=== PATIENT | female | born 1950 | race Hispanic/Latino ===

== ENCOUNTER 2017-02-05 09:43 | Emergency (ER) | payer MEDICARE, MEDICAID ==
[~2017-02-05] VITALS: Ht 149.9 cm; Wt 70.0 kg
[~2017-02-05 09:43] MED LIST: AMARYL4 MG OR; AMARYL4 MG PO; AMITRIPTYLIN100 MG PO; AMITRIPTYLIN25 MG PO; AMLODIPINE5 MG PO; ATARAX; ATIVAN1 MG OR; BUMEX OR; CALCIUM500 MG/D OR; CLARITIN10 MG OR; CLONIDINE0.1 MG PO; COLACE100 MG OR; CYCLOBENZAPR10 MG OR; CYCLOBENZAPR10 MG PO; DETROL LA4 MG OR; DIOVAN80 MG PO; DOXYCYCL HYC100 M3 PO; DOXYCYCL HYC100 MG OR; DURAGESIC50 MCG/HR TD; DURAGESIC75 MCG/HR TD; FLEXERIL OR; FLUOXETINE20 MG OR; GABAPENTIN300 MG OR; HYDRALAZINE10 MG PO; HYDROCHLOROT12.5 MG PO; HYDROMORPHON8 MG OR; INSULIN SY0.5 MG/32 SC; KLOR-CON M2020 MEQ OR; KLOR-CON20 MEQ OR; LABETALOL100 MG PO; LABETALOL200 MG PO; LANTUS100 MG/ML SC; LASIX 80 MG TAB80 MG OR; LASIX20 MG OR; LISINOPRIL20 MG PO; LORTAB 10 PO; LORTAB 10-325 M1 TAB PO; LOSARTAN POTASS50 MG PO; MEDDOSEPAK PO; METFORMIN500 M1 OR; METFORMIN500 MG PO; METHOCARBAM750 MG OR; METOLAZONE2.5 MG OR; METOPROLOL25 M1 OR; MIRTAZAPINE OR; MIRTAZAPINE15 MG PO; Metformin OR; NAPROSYN500 MG OR; NAPROSYN500 MG PO; NEURONTIN300 MG PO; NEURONTIN600 MG OR; NEXIUM40 M1 OR; NITROGLYCER0.4 MG SL; NORCO1 TA1 PO; NORCO1 TA2 OR; NORVASC2.5 MG PO; OSCAL 500/1 TAB OR; OXYCO/APAP1 TA1 OR; OXYCODO-APAP1 TA2 PO; PLAVIX75 MG OR; POOR HISTORIAN; PRAVASTATIN20 MG PO; PREVACID30 M1 OR; PREVACID30 M1 PO; PRILOSEC40 MG PO; PRINIVIL20 MG OR; PRINIVIL5 MG OR; PROTONIX40 MG OR; PROZAC20 MG OR; REGLAN10 MG OR; REMERON15 MG OR; ROBAXIN-750750 MG OR; SOMA350 MG OR; TRAMADOL HCL50 MG OR; ZESTRIL40 MG OR
[2017-02-05] MEDS ORDERED: NORVASC5 M1 PO (10:08)
[2017-02-05] MEDS ORDERED: TRAMADOL HCL50 MG PO (10:09)
[2017-02-05] MEDS ORDERED: CATAPRES0.1 MG PO (10:10)
[2017-02-05] MEDS ORDERED: FLEXERIL5 M1 PO (10:11)
[2017-02-05] MEDS ORDERED: PENICILLN VK500 MG PO ×2 (10:12→11:34)
[2017-02-05 10:20] LABS: HEMATOCRIT 39.6 % (37.0-47.0); IMMATURE GRANULOCYTES 0.5 % (0.0-1.0); MEAN CELL VOLUME 88.6 fL CALC (80.0-100.0); MEAN CORPUSCULAR HGB 31.3 pG CALC (26.0-32.0); MEAN CORPUSCULAR HGB CONC 35.4 g/L CALC (32.0-36.0); NEUT# 5.37 thou/uL (2.00-7.15); RED BLOOD COUNT 4.47 mill/uL (4.20-5.60); RED CELL DISTRI WIDTH 11.9 % (11.5-15.5)
[2017-02-05 11:06] LABS: ALBUMIN 3.9 g/dL (3.2-5.0); ALKALINE PHOSPHATASE 173 u/l (38-126); ANION GAP 13 (6-22 (CALC)); BILIRUBIN, TOTAL 0.4 mg/dL (0.0-1.4); BUN 12 mg/dL (8-23); BUN/CREATININE RATIO 20 (12-20 (CALC)); CARBON DIOXIDE 25 mmol/l (22-30); CHLORIDE 101 mmol/l (95-108); CREATININE 0.6 mg/dL (0.5-1.0); GFR > 60 ML/MIN (>=60 (CALC)); GFR FOR AFR.AMER. > 60 ML/MIN (>=60 (CALC)); GLUCOSE 373 mg/dL (82-115); SGOT/AST 18 u/l (9-36); SGPT/ALT 30 u/l (11-66); SODIUM 134 mmol/l (137-146); TOTAL PROTEIN 7.2 g/dL (6.3-8.2)
[2017-02-05 11:17] LABS: MYOGLOBIN 16 ng/mL (0 - 62)
[2017-02-05] MEDS ORDERED: LORTAB 5-325 MG1 TAB PO (11:34)
[2017-02-05 12:16] VITALS: BP 189/96
== END 2017-02-05 12:18 | disposition home or self-care (01) ==
LOC: ED 09:43
PROVIDERS: Emergency Medicine
DX: K08.89 Other specified disorders of teeth and supporting structures (principal); I16.0 Hypertensive urgency; Z91.14 Patient's other noncompliance with medication regimen; R94.31 Abnormal electrocardiogram [ECG] [EKG]

== ENCOUNTER 2017-05-19 11:13 | Emergency (ER) | payer MEDICARE ==
[~2017-05-19] VITALS: Ht 149.9 cm; Wt 63.0 kg
[~2017-05-19 11:13] MED LIST changes: +CATAPRES0.1 MG PO; +FLEXERIL5 M1 PO; +LORTAB 5-325 MG1 TAB PO; +NORVASC5 M1 PO; +PENICILLN VK500 MG PO; +TRAMADOL HCL50 MG PO
[2017-05-19] MEDS ORDERED: NAPROSYN500 MG PO (12:31)
[2017-05-19 12:43] VITALS: BP 164/91
== END 2017-05-19 12:48 | disposition home or self-care (01) ==
LOC: ED 11:13
DX: S60.222A Contusion of left hand, initial encounter (principal); I10 Essential (primary) hypertension; E11.9 Type 2 diabetes mellitus without complications; F41.9 Anxiety disorder, unspecified; Z86.73 Personal history of transient ischemic attack (TIA), and cerebral infarction without residual deficits; G89.29 Other chronic pain; M54.9 Dorsalgia, unspecified; W23.1XXA Caught, crushed, jammed, or pinched between stationary objects, initial encounter

== ENCOUNTER 2017-09-18 16:22 | Emergency (ER) | payer MEDICARE, MEDICAID ==
[~2017-09-18] VITALS: Ht 149.9 cm; Wt 66.0 kg
[2017-09-18 19:48] LABS: HEMATOCRIT 41.1 % (37.0-47.0); HEMOGLOBIN 14.3 g/dl (12.0-16.0); IMMATURE GRANULOCYTES 0.4 % (0.0-1.0); MEAN CELL VOLUME 88.6 fL CALC (80.0-100.0); MEAN CORPUSCULAR HGB 30.8 pG CALC (26.0-32.0); MEAN CORPUSCULAR HGB CONC 34.8 g/L CALC (32.0-36.0); NEUT# 6.44 thou/uL (2.00-7.15); RED BLOOD COUNT 4.64 mill/uL (4.20-5.60); RED CELL DISTRI WIDTH 11.9 % (11.5-15.5)
[2017-09-18 19:55] LABS: INFLUENZA A NONE DETECTED (NONE DETECT); INFLUENZA B NONE DETECTED (NONE DETECT)
[2017-09-18 20:05] LABS: ANION GAP 18 (6-22 (CALC)); BUN 20 mg/dL (8-23); BUN/CREATININE RATIO 28 (12-20 (CALC)); CALCIUM 9.8 mg/dL (8.4-10.2); CARBON DIOXIDE 22 mmol/l (22-30); CHLORIDE 101 mmol/l (95-108); CREATININE 0.7 mg/dL (0.5-1.0); GFR > 60 ML/MIN (>=60 (CALC)); GFR FOR AFR.AMER. > 60 ML/MIN (>=60 (CALC)); SODIUM 136 mmol/l (137-146)
[2017-09-18 20:12] LABS: GLUCOSE 452 mg/dL (82-115)
[2017-09-18] MEDS ORDERED: ZPAK PO (21:53)
[2017-09-18 22:18] VITALS: BP 142/67
== END 2017-09-18 22:22 | disposition home or self-care (01) ==
LOC: ED 16:22
PROVIDERS: Family Medicine
DX: J06.9 Acute upper respiratory infection, unspecified (principal); I16.0 Hypertensive urgency; R06.02 Shortness of breath; E11.9 Type 2 diabetes mellitus without complications; Z79.4 Long term (current) use of insulin

== ENCOUNTER 2017-09-29 13:36 | Emergency (ER) | payer MEDICARE, MEDICAID ==
[~2017-09-29] VITALS: Ht 149.9 cm; Wt 63.0 kg
[~2017-09-29 13:36] MED LIST changes: +ZPAK PO
[2017-09-29 14:28] LABS: HEMATOCRIT 41.6 % (37.0-47.0); HEMOGLOBIN 15.1 g/dl (12.0-16.0); IMMATURE GRANULOCYTES 0.5 % (0.0-1.0); MEAN CELL VOLUME 86.1 fL CALC (80.0-100.0); MEAN CORPUSCULAR HGB 31.3 pG CALC (26.0-32.0); MEAN CORPUSCULAR HGB CONC 36.3 g/L CALC (32.0-36.0); NEUT# 9.08 thou/uL (2.00-7.15); RED BLOOD COUNT 4.83 mill/uL (4.20-5.60); RED CELL DISTRI WIDTH 11.8 % (11.5-15.5)
[2017-09-29 15:14] LABS: ALBUMIN 3.9 g/dL (3.2-5.0); ALKALINE PHOSPHATASE 172 u/l (38-126); ANION GAP 17 (6-22 (CALC)); BILIRUBIN, TOTAL 0.6 mg/dL (0.0-1.4); BUN 11 mg/dL (8-23); BUN/CREATININE RATIO 17 (12-20 (CALC)); CARBON DIOXIDE 18 mmol/l (22-30); CHLORIDE 105 mmol/l (95-108); CREATININE 0.6 mg/dL (0.5-1.0); GFR > 60 ML/MIN (>=60 (CALC)); GFR FOR AFR.AMER. > 60 ML/MIN (>=60 (CALC)); POTASSIUM 3.4 mmol/l (3.5-5.1); SGOT/AST 19 u/l (9-36); SGPT/ALT 17 u/l (11-66); SODIUM 136 mmol/l (137-146); TOTAL PROTEIN 7.1 g/dL (6.3-8.2)
[2017-09-29] MEDS ORDERED: LEVEMIR FL100 UNIT/M SC (15:52)
[2017-09-29] MEDS ORDERED: AMLODIPINE5 MG PO (15:53)
[2017-09-29] MEDS ORDERED: ATORVASTATIN CA40 MG PO (15:53)
[2017-09-29] MEDS ORDERED: MELOXICAM7.5 MG PO (15:53)
[2017-09-29] MEDS ORDERED: LISINOP/HCTZ1 TA2 PO (15:54)
[2017-09-29] MEDS ORDERED: METFORMIN500 MG PO (15:54)
[2017-09-29] MEDS ORDERED: CLONIDINE0.1 MG PO (15:55)
[2017-09-29 18:28] VITALS: BP 145/56
== END 2017-09-29 18:29 | disposition home or self-care (01) ==
LOC: ED 13:36
PROVIDERS: Emergency Medicine
DX: E11.65 Type 2 diabetes mellitus with hyperglycemia (principal); R06.00 Dyspnea, unspecified; I10 Essential (primary) hypertension

== ENCOUNTER 2017-10-07 11:25 | Emergency (ER) | payer MEDICARE, MEDICAID ==
[~2017-10-07] VITALS: Ht 149.9 cm; Wt 65.0 kg
[~2017-10-07 11:25] MED LIST changes: +ATORVASTATIN CA40 MG PO; +LEVEMIR FL100 UNIT/M SC; +LISINOP/HCTZ1 TA2 PO; +MELOXICAM7.5 MG PO
[2017-10-07 12:20] LABS: HEMATOCRIT 38.8 % (37.0-47.0); HEMOGLOBIN 13.9 g/dl (12.0-16.0); IMMATURE GRANULOCYTES 0.3 % (0.0-1.0); MEAN CORPUSCULAR HGB 31.2 pG CALC (26.0-32.0); MEAN CORPUSCULAR HGB CONC 35.8 g/L CALC (32.0-36.0); NEUT# 8.88 thou/uL (2.00-7.15); RED BLOOD COUNT 4.46 mill/uL (4.20-5.60); RED CELL DISTRI WIDTH 11.9 % (11.5-15.5)
[2017-10-07 13:28] LABS: ALKALINE PHOSPHATASE 162 u/l (38-126); ANION GAP 17 (6-22 (CALC)); BILIRUBIN, TOTAL 0.5 mg/dL (0.0-1.4); BUN 12 mg/dL (8-23); BUN/CREATININE RATIO 20 (12-20 (CALC)); CARBON DIOXIDE 19 mmol/l (22-30); CHLORIDE 105 mmol/l (95-108); CREATININE 0.6 mg/dL (0.5-1.0); GFR > 60 ML/MIN (>=60 (CALC)); GFR FOR AFR.AMER. > 60 ML/MIN (>=60 (CALC)); POTASSIUM 3.6 mmol/l (3.5-5.1); SGOT/AST 22 u/l (9-36); SGPT/ALT 22 u/l (11-66); SODIUM 137 mmol/l (137-146); TOTAL PROTEIN 7.4 g/dL (6.3-8.2)
[2017-10-07 13:41] LABS: MYOGLOBIN 14 ng/mL (0 - 62)
[2017-10-07 13:59] LABS: D-DIMER 0.41 mg/L (0.19-0.60); INTERNATIONAL NORMALIZED RATIO 0.9 RATIO (0.7-1.3); PROTHROMBIN TIME 10.4 SECONDS (9.0-12.5)
[2017-10-07] MEDS ORDERED: PREDNISONE50 MG PO (14:13)
[2017-10-07] MEDS ORDERED: ZITHROMAX250 MG PO (14:13)
[2017-10-07] MEDS ORDERED: VENTOLIN HFA IN (14:13)
[2017-10-07 14:20] VITALS: BP 149/81
== END 2017-10-07 14:30 | disposition home or self-care (01) ==
LOC: ED 11:25
PROVIDERS: Emergency Medicine
DX: J98.01 Acute bronchospasm (principal); R94.31 Abnormal electrocardiogram [ECG] [EKG]; R05 Cough; R06.02 Shortness of breath

== ENCOUNTER 2017-10-14 16:09 | Emergency (ER) | payer MEDICARE, MEDICAID ==
[~2017-10-14] VITALS: Ht 149.9 cm; Wt 53.0 kg
[~2017-10-14 16:09] MED LIST changes: +PREDNISONE50 MG PO; +VENTOLIN HFA IN; +ZITHROMAX250 MG PO
[2017-10-14 16:53] LABS: HEMATOCRIT 37.4 % (37.0-47.0); HEMOGLOBIN 13.4 g/dl (12.0-16.0); MEAN CELL VOLUME 86.8 fL CALC (80.0-100.0); MEAN CORPUSCULAR HGB 31.1 pG CALC (26.0-32.0); MEAN CORPUSCULAR HGB CONC 35.8 g/L CALC (32.0-36.0); NEUT# 8.3 thou/uL (2.00-7.15); RED BLOOD COUNT 4.31 mill/uL (4.20-5.60); RED CELL DISTRI WIDTH 11.6 % (11.5-15.5)
[2017-10-14 17:10] LABS: ALBUMIN 3.5 g/dL (3.2-5.0); ALKALINE PHOSPHATASE 203 u/l (38-126); ANION GAP 16 (6-22 (CALC)); BILIRUBIN, TOTAL 0.2 mg/dL (0.0-1.4); BUN 17 mg/dL (8-23); BUN/CREATININE RATIO 24 (12-20 (CALC)); CARBON DIOXIDE 18 mmol/l (22-30); CHLORIDE 108 mmol/l (95-108); CREATININE 0.7 mg/dL (0.5-1.0); GFR > 60 ML/MIN (>=60 (CALC)); GFR FOR AFR.AMER. > 60 ML/MIN (>=60 (CALC)); POTASSIUM 3.5 mmol/l (3.5-5.1); SGOT/AST 22 u/l (9-36); SGPT/ALT 25 u/l (11-66); SODIUM 138 mmol/l (137-146); TOTAL PROTEIN 6.5 g/dL (6.3-8.2)
[2017-10-14 17:22] LABS: MYOGLOBIN 12 ng/mL (0 - 62)
[2017-10-14] MEDS ORDERED: XANAX0.25 MG PO (17:35)
[2017-10-14 17:38] VITALS: BP 171/70
== END 2017-10-14 17:47 | disposition home or self-care (01) ==
LOC: ED 16:09
PROVIDERS: Emergency Medicine
DX: F41.9 Anxiety disorder, unspecified (principal); I10 Essential (primary) hypertension; E11.9 Type 2 diabetes mellitus without complications; Z79.4 Long term (current) use of insulin; R06.02 Shortness of breath

== ENCOUNTER 2020-06-09 11:02 | Emergency (ER) | payer MEDICARE, MEDICAID ==
[~2020-06-09] VITALS: Ht 149.9 cm; Wt 70.0 kg
[~2020-06-09 11:02] MED LIST changes: +XANAX0.25 MG PO
[2020-06-09 12:39] LABS: ALKALINE PHOSPHATASE 144 u/l (38-126); BUN 22 mg/dL (8-23); BUN/CREATININE RATIO 27 (12-20 (CALC)); CREATININE 0.8 mg/dL (0.5-1.0); GFR > 60 ML/MIN (>=60 (CALC)); GFR FOR AFR.AMER. > 60 ML/MIN (>=60 (CALC)); LIPASE 42 u/l (23-300); SGOT/AST 23 u/l (9-36)
[2020-06-09 12:42] LABS: ALBUMIN 4.4 g/dL (3.2-5.0); ANION GAP 19 (6-22 (CALC)); BILIRUBIN, TOTAL 0.9 mg/dL (0.0-1.4); CARBON DIOXIDE 23 mmol/l (22-30); CHLORIDE 88 mmol/l (95-108); SODIUM 126 mmol/l (137-146); TOTAL PROTEIN 8.2 g/dL (6.3-8.2)
[2020-06-09 13:01] LABS: HEMATOCRIT 38.9 % (37.0-47.0); HEMOGLOBIN 13.5 g/dl (12.0-16.0); IMMATURE GRANULOCYTES 0.6 % (0.0-5.0); MEAN CORPUSCULAR HGB 30.2 pG CALC (26.0-32.0); MEAN CORPUSCULAR HGB CONC 34.7 g/dL CAL (32.0-36.0); NEUT# 14.07 thou/uL (2.00-7.15); RED BLOOD COUNT 4.47 mill/uL (4.20-5.60); RED CELL DISTRI WIDTH 11.4 % (11.5-15.5)
[2020-06-09 19:05] VITALS: BP 114/56
[2020-06-09 20:03] LABS: URINE BILIRUBIN - DIPSTICK NEGATIVE (NEGATIVE); URINE BLOOD DIPSTICK MODERATE (NEGATIVE); URINE COLOR YELLOW; URINE GLUCOSE - DIPSTICK >=1000 mg/dL (NEGATIVE); URINE KETONE NEGATIVE (NEGATIVE); URINE LEUK ESTERASE TRACE (NEGATIVE); URINE NITRITE - DIPSTICK NEGATIVE (Negative); URINE PH 6.5 (4.5-8.0); URINE PROTEIN - DIPSTICK TRACE mg/dL (NEG-TRACE); URINE UROBILINOGEN - DIPSTICK 0.2 E.U./dL (0.2)
[2020-06-09 20:16] LABS: URINE AMORPH SEDIMENT FEW hpf (NONE-FEW); URINE SQUAMOUS EPITHELIAL CELL FEW EPI/hpf (0-FEW)
== END 2020-06-09 19:08 | disposition short-term general hospital (02) ==
LOC: ED 11:02
PROVIDERS: Student in an Organized Health Care Education/Training Program
DX: K83.1 Obstruction of bile duct (principal); E11.10 Type 2 diabetes mellitus with ketoacidosis without coma; I10 Essential (primary) hypertension; Z79.4 Long term (current) use of insulin
CPT/HCPCS: Q9967

== ENCOUNTER 2021-03-27 03:28 | Emergency (ER) | payer MEDICARE, MEDICAID ==
[~2021-03-27 03:28] MED LIST changes: +FAMOTIDINE20 M1 PO; +HYDROCODONE/ACE1 TAB PO
[2021-03-27 04:21] LABS: HEMATOCRIT 35.4 % (37.0-47.0); HEMOGLOBIN 11.6 g/dl (12.0-16.0); IMMATURE GRANULOCYTES 0.2 % (0.0-5.0); MEAN CELL VOLUME 91.7 fL CALC (80.0-100.0); MEAN CORPUSCULAR HGB 30.1 pG CALC (26.0-32.0); MEAN CORPUSCULAR HGB CONC 32.8 g/dL CAL (32.0-36.0); NEUT# 7.84 thou/uL (2.00-7.15); RED BLOOD COUNT 3.86 mill/uL (4.20-5.60); RED CELL DISTRI WIDTH 12.3 % (11.5-15.5)
[2021-03-27 04:39] LABS: ALBUMIN 3.5 g/dL (3.2-5.0); ALKALINE PHOSPHATASE 249 u/l (38-126); AMYLASE 54 u/l (30-110); ANION GAP 14 (6-22 (CALC)); BILIRUBIN, TOTAL 0.3 mg/dL (0.0-1.4); BUN 18 mg/dL (8-23); BUN/CREATININE RATIO 19 (12-20 (CALC)); CARBON DIOXIDE 22 mmol/l (22-30); CHLORIDE 98 mmol/l (95-108); CREATININE 0.9 mg/dL (0.5-1.0); GFR > 60 ML/MIN (>=60 (CALC)); GFR FOR AFR.AMER. > 60 ML/MIN (>=60 (CALC)); LIPASE 334 u/l (23-300); MAGNESIUM 1.7 mg/dL (1.6-2.3); POTASSIUM 4.3 mmol/l (3.5-5.1); SGOT/AST 17 u/l (9-36); SODIUM 129 mmol/l (137-146); TOTAL PROTEIN 6.9 g/dL (6.3-8.2)
[2021-03-27 04:40] LABS: ACT PARTIAL THROMBO TIME 22.3 SECONDS (20.0-32.5); INTERNATIONAL NORMALIZED RATIO 0.9 RATIO (0.7-1.3); PROTHROMBIN TIME 9.3 SECONDS (9.0-12.5)
[2021-03-27 04:50] LABS: MYOGLOBIN 25 ng/mL (0 - 62)
[2021-03-27] MEDS ORDERED: TORADOL PO (05:43)
[2021-03-27] MEDS ORDERED: BACTRIM DS1 TAB PO (05:43)
[2021-03-27 07:53] VITALS: BP 142/66
== END 2021-03-27 08:00 | disposition home or self-care (01) ==
LOC: ED 03:28
PROVIDERS: Family Medicine
DX: M94.0 Chondrocostal junction syndrome [Tietze] (principal); L03.114 Cellulitis of left upper limb; M19.072 Primary osteoarthritis, left ankle and foot; E11.65 Type 2 diabetes mellitus with hyperglycemia; I10 Essential (primary) hypertension; Z79.4 Long term (current) use of insulin

== ENCOUNTER 2021-06-13 11:44 | Emergency (ER) | payer MEDICARE, MEDICAID ==
[~2021-06-13] VITALS: Ht 149.9 cm; Wt 70.0 kg
[~2021-06-13 11:44] MED LIST changes: +BACTRIM DS1 TAB PO; +TORADOL PO
[2021-06-13 12:36] LABS: HEMATOCRIT 33.3 % (37.0-47.0); HEMOGLOBIN 10.8 g/dl (12.0-16.0); IMMATURE GRANULOCYTES 0.3 % (0.0-5.0); MEAN CELL VOLUME 91.7 fL CALC (80.0-100.0); MEAN CORPUSCULAR HGB 29.8 pG CALC (26.0-32.0); MEAN CORPUSCULAR HGB CONC 32.4 g/dL CAL (32.0-36.0); NEUT# 4.87 thou/uL (2.00-7.15); RED BLOOD COUNT 3.63 mill/uL (4.20-5.60); RED CELL DISTRI WIDTH 12.7 % (11.5-15.5)
[2021-06-13 13:14] LABS: ALBUMIN 3.8 g/dL (3.2-5.0); ALKALINE PHOSPHATASE 170 u/l (38-126); ANION GAP 12 (6-22 (CALC)); BILIRUBIN, TOTAL 0.4 mg/dL (0.0-1.4); BUN 17 mg/dL (8-23); BUN/CREATININE RATIO 25 (12-20 (CALC)); CARBON DIOXIDE 25 mmol/l (22-30); CHLORIDE 104 mmol/l (95-108); CREATININE 0.7 mg/dL (0.5-1.0); GFR > 60 ML/MIN (>=60 (CALC)); GFR FOR AFR.AMER. > 60 ML/MIN (>=60 (CALC)); POTASSIUM 3.9 mmol/l (3.5-5.1); SGOT/AST 18 u/l (9-36); SODIUM 137 mmol/l (137-146); TOTAL PROTEIN 7.8 g/dL (6.3-8.2)
[2021-06-13] MEDS ORDERED: PERCOCET 5/325M1 TAB PO (14:29)
[2021-06-13] MEDS ORDERED: TORADOL PO (14:29)
[2021-06-13 14:31] VITALS: BP 170/73
== END 2021-06-13 14:41 | disposition home or self-care (01) ==
LOC: ED 11:44
PROVIDERS: Emergency Medicine
DX: G89.29 Other chronic pain (principal); M54.50 Low back pain, unspecified; M79.601 Pain in right arm; M79.604 Pain in right leg; E11.9 Type 2 diabetes mellitus without complications; I10 Essential (primary) hypertension; Z85.43 Personal history of malignant neoplasm of ovary; Z79.84 Long term (current) use of oral hypoglycemic drugs; Z79.4 Long term (current) use of insulin

== ENCOUNTER 2021-08-23 17:33 | Emergency (ER) | payer MEDICARE, MEDICAID ==
[~2021-08-23] VITALS: Ht 149.9 cm; Wt 63.0 kg
[~2021-08-23 17:33] MED LIST changes: +PERCOCET 5/325M1 TAB PO
[2021-08-23 19:04] LABS: HEMATOCRIT 32.3 % (37.0-47.0); HEMOGLOBIN 10.6 g/dl (12.0-16.0); IMMATURE GRANULOCYTES 0.2 % (0.0-5.0); MEAN CELL VOLUME 91.2 fL CALC (80.0-100.0); MEAN CORPUSCULAR HGB 29.9 pG CALC (26.0-32.0); MEAN CORPUSCULAR HGB CONC 32.8 g/dL CAL (32.0-36.0); NEUT# 6.08 thou/uL (2.00-7.15); RED BLOOD COUNT 3.54 mill/uL (4.20-5.60); RED CELL DISTRI WIDTH 13.3 % (11.5-15.5)
[2021-08-23 19:17] LABS: ALBUMIN 3.7 g/dL (3.2-5.0); BILIRUBIN, TOTAL 0.4 mg/dL (0.0-1.4); CREATININE 1.1 mg/dL (0.5-1.0); POTASSIUM 4.2 mmol/l (3.5-5.1); TOTAL PROTEIN 7.8 g/dL (6.3-8.2)
[2021-08-23 20:15] VITALS: BP 130/71
== END 2021-08-23 20:15 | disposition home or self-care (01) ==
LOC: ED 17:33
DX: M79.672 Pain in left foot (principal); R60.0 Localized edema; I10 Essential (primary) hypertension; E11.9 Type 2 diabetes mellitus without complications; Z80.41 Family history of malignant neoplasm of ovary; Z79.84 Long term (current) use of oral hypoglycemic drugs; Z79.4 Long term (current) use of insulin

== ENCOUNTER 2022-01-04 10:32 | Observation (INO) | payer MEDICARE, MEDICAID ==
[~2022-01-04] VITALS: Ht 149.9 cm; Wt 69.0 kg
[2022-01-04 11:43] LABS: HEMOGLOBIN 11.5 g/dl (12.0-16.0); IMMATURE GRANULOCYTES 0.2 % (0.0-5.0); MEAN CELL VOLUME 88.8 fL CALC (80.0-100.0); MEAN CORPUSCULAR HGB 29.2 pG CALC (26.0-32.0); MEAN CORPUSCULAR HGB CONC 32.9 g/dL CAL (32.0-36.0); NEUT# 9.08 thou/uL (2.00-7.15); RED BLOOD COUNT 3.94 mill/uL (4.20-5.60)
[2022-01-04 12:08] LABS: ALBUMIN 3.7 g/dL (3.2-5.0); ALKALINE PHOSPHATASE 151 u/l (38-126); ANION GAP 14 (6-22 (CALC)); BILIRUBIN, TOTAL 0.3 mg/dL (0.0-1.4); BUN 21 mg/dL (8-23); BUN/CREATININE RATIO 27 (12-20 (CALC)); CARBON DIOXIDE 26 mmol/l (22-30); CHLORIDE 98 mmol/l (95-108); CREATININE 0.8 mg/dL (0.5-1.0); GFR > 60 ML/MIN (>=60 (CALC)); GFR FOR AFR.AMER. > 60 ML/MIN (>=60 (CALC)); POTASSIUM 4.9 mmol/l (3.5-5.1); SGOT/AST 23 u/l (9-36); SODIUM 132 mmol/l (137-146); TOTAL PROTEIN 6.8 g/dL (6.3-8.2)
[2022-01-04 12:49] LABS: URINE BILIRUBIN - DIPSTICK NEGATIVE (NEGATIVE); URINE BLOOD DIPSTICK TRACE-INTACT (NEGATIVE); URINE COLOR YELLOW; URINE GLUCOSE - DIPSTICK >=1000 mg/dL (NEGATIVE); URINE KETONE NEGATIVE (NEGATIVE); URINE LEUK ESTERASE NEGATIVE (NEGATIVE); URINE PROTEIN - DIPSTICK NEGATIVE (NEG-TRACE); URINE SPECIFIC GRAVITY <=1.005; URINE UROBILINOGEN - DIPSTICK 0.2 E.U./dL (0.2)
[2022-01-04 12:57] LABS: URINE NITRITE - DIPSTICK NEGATIVE (Negative)
[2022-01-04] MEDS ORDERED: PLAVIX75 MG PO (14:40)
[2022-01-04] MEDS ORDERED: LEVOTHYROXIN50 MCG PO (14:41)
[2022-01-04] MEDS ORDERED: JARDIANCE25 MG PO (14:41)
[2022-01-04] MEDS ORDERED: LANTUS SOL100 UNIT/M SC (14:42)
[2022-01-04] MEDS ORDERED: TRAMADOL HCL50 MG PO (15:50)
[2022-01-04 21:03] VITALS: BP 172/45
[2022-01-05 00:08] VITALS: BP 86/29
[2022-01-05 04:20] VITALS: BP 99/35
[2022-01-05 05:34] LABS: HEMATOCRIT 31.2 % (37.0-47.0); HEMOGLOBIN 10.4 g/dl (12.0-16.0); MEAN CELL VOLUME 87.6 fL CALC (80.0-100.0); MEAN CORPUSCULAR HGB 29.2 pG CALC (26.0-32.0); MEAN CORPUSCULAR HGB CONC 33.3 g/dL CAL (32.0-36.0); RED BLOOD COUNT 3.56 mill/uL (4.20-5.60); RED CELL DISTRI WIDTH 14.5 % (11.5-15.5)
[2022-01-05 05:59] LABS: ANION GAP 12 (6-22 (CALC)); BUN 25 mg/dL (8-23); BUN/CREATININE RATIO 31 (12-20 (CALC)); CARBON DIOXIDE 24 mmol/l (22-30); CHLORIDE 106 mmol/l (95-108); CREATININE 0.8 mg/dL (0.5-1.0); GFR > 60 ML/MIN (>=60 (CALC)); GFR FOR AFR.AMER. > 60 ML/MIN (>=60 (CALC)); MAGNESIUM 1.8 mg/dL (1.6-2.3); SODIUM 137 mmol/l (137-146)
[2022-01-05 07:36] VITALS: BP 114/45
[2022-01-05 08:00] VITALS: BP 118/41
[2022-01-05 10:51] VITALS: BP 132/54
[2022-01-05] MEDS ORDERED: GABAPENTIN300 M2 PO ×2 (11:46→14:48)
== END 2022-01-05 13:58 | disposition home or self-care (01) ==
LOC: ED 10:32 → ED-I 13:55 → ED 14:34 → MS2 14:35
PROVIDERS: Family Medicine; ADMIT Hospitalist; ATTEND Hospitalist
DX: E11.42 Type 2 diabetes mellitus with diabetic polyneuropathy (principal); E11.51 Type 2 diabetes mellitus with diabetic peripheral angiopathy without gangrene; I70.213 Atherosclerosis of native arteries of extremities with intermittent claudication, bilateral legs; E11.65 Type 2 diabetes mellitus with hyperglycemia; I10 Essential (primary) hypertension; E03.9 Hypothyroidism, unspecified; E87.2 Acidosis; E66.9 Obesity, unspecified; T50.916A Underdosing of multiple unspecified drugs, medicaments and biological substances, initial encounter; Z91.128 Patient's intentional underdosing of medication regimen for other reason; Z68.30 Body mass index [BMI] 30.0-30.9, adult; Z79.4 Long term (current) use of insulin; Z79.02 Long term (current) use of antithrombotics/antiplatelets; Z20.822 Contact with and (suspected) exposure to COVID-19
CPT/HCPCS: J1650

== ENCOUNTER 2023-04-09 08:29 | Emergency (ER) | payer MEDICARE, MEDICAID ==
[2023-04-09] VITALS (15 sets, daily range): BP systolic 158–228; BP diastolic 66–165
[~2023-04-09] VITALS: Ht 149.9 cm; Wt 65.8 kg
[~2023-04-09 08:29] MED LIST changes: +GABAPENTIN300 M2 PO; +JARDIANCE25 MG PO; +LANTUS SOL100 UNIT/M SC; +LEVOTHYROXIN50 MCG PO; +PLAVIX75 MG PO
[2023-04-09] MEDS ORDERED: OXYCODONE5 M1 PO (08:46)
[2023-04-09 09:12] LABS: BASO% 0.4 % (0-3); EOS% 0.9 % (0-8); IMMATURE GRANULOCYTES 0.5 % (0.0-5.0); LYMPH% 20.3 % (15-41); MEAN CELL VOLUME 92.7 fL CALC (80.0-100.0); MEAN CORPUSCULAR HGB 30.3 pG CALC (26.0-32.0); MEAN CORPUSCULAR HGB CONC 32.7 g/dL CAL (32.0-36.0); NEUT# 8.05 thou/uL (2.00-7.15); NEUT% 70.9 % (42-76); RED BLOOD COUNT 4.12 mill/uL (4.20-5.60); RED CELL DISTRI WIDTH 12.3 % (11.5-15.5)
[2023-04-09 09:18] LABS: HEMATOCRIT 38.2 % (37.0-47.0); HEMOGLOBIN 12.5 g/dl (12.0-16.0)
[2023-04-09 09:19] LABS: ALBUMIN 3.7 g/dL (3.2-5.0); ALKALINE PHOSPHATASE 122 u/l (38-126); ANION GAP 15 (6-22 (CALC)); BILIRUBIN, TOTAL 0.3 mg/dL (0.02-1.3); BUN 13 mg/dL (8-23); BUN/CREATININE RATIO 19 (12-20 (CALC)); CARBON DIOXIDE 18 mmol/l (22-30); CHLORIDE 106 mmol/l (95-108); CREATININE 0.7 mg/dL (0.5-1.0); GFR FOR AFR.AMER. > 60 ML/MIN (>=60 (CALC)); GFR OTHER RACES > 60 ML/MIN (>=60 (CALC)); POTASSIUM 4.5 mmol/l (3.5-5.1); SGOT/AST 42 u/l (9-36); SODIUM 134 mmol/l (137-146)
== END 2023-04-09 12:30 | disposition home or self-care (01) ==
LOC: ED 08:29
PROVIDERS: Family Medicine
DX: R06.02 Shortness of breath (principal); I10 Essential (primary) hypertension; E11.9 Type 2 diabetes mellitus without complications; E66.9 Obesity, unspecified; Z79.4 Long term (current) use of insulin; Z20.822 Contact with and (suspected) exposure to COVID-19
CPT/HCPCS: Q9967

== ENCOUNTER 2023-05-13 18:06 | Observation (INO) | payer MEDICARE, MEDICAID ==
[2023-05-13] VITALS (23 sets, daily range): BP systolic 87–186; BP diastolic 50–150
[~2023-05-13] VITALS: Ht 149.9 cm; Wt 63.5 kg
[~2023-05-13 18:06] MED LIST changes: +OXYCODONE5 M1 PO
[2023-05-13 18:47] LABS: BASO% 0.2 % (0-3); EOS% 0.1 % (0-8); HEMATOCRIT 40.3 % (37.0-47.0); HEMOGLOBIN 13.1 g/dl (12.0-16.0); IMMATURE GRANULOCYTES 1.4 % (0.0-5.0); LYMPH% 10.5 % (15-41); MEAN CELL VOLUME 93.3 fL CALC (80.0-100.0); MEAN CORPUSCULAR HGB 30.3 pG CALC (26.0-32.0); MEAN CORPUSCULAR HGB CONC 32.5 g/dL CAL (32.0-36.0); MONO% 4.8 % (2-13); NEUT# 11.67 thou/uL (2.00-7.15); RED BLOOD COUNT 4.32 mill/uL (4.20-5.60); RED CELL DISTRI WIDTH 12.7 % (11.5-15.5)
[2023-05-13 18:59] LABS: ALBUMIN 4.1 g/dL (3.2-5.0); ALKALINE PHOSPHATASE 120 u/l (38-126); ANION GAP 14 (6-22 (CALC)); BILIRUBIN, TOTAL 0.6 mg/dL (0.02-1.3); BUN 28 mg/dL (8-23); BUN/CREATININE RATIO 35 (12-20 (CALC)); CARBON DIOXIDE 19 mmol/l (22-30); CHLORIDE 106 mmol/l (95-108); CREATININE 0.8 mg/dL (0.5-1.0); GFR FOR AFR.AMER. > 60 ML/MIN (>=60 (CALC)); GFR OTHER RACES > 60 ML/MIN (>=60 (CALC)); SGOT/AST 50 u/l (9-36); SODIUM 134 mmol/l (137-146); TOTAL PROTEIN 8.5 g/dL (6.3-8.2)
[2023-05-13 22:22] LABS: URINE BILIRUBIN - DIPSTICK Negative (NEGATIVE); URINE BLOOD DIPSTICK Trace-lysed (NEGATIVE); URINE GLUCOSE - DIPSTICK 500 mg/dL (NEGATIVE); URINE KETONE Negative (NEGATIVE); URINE LEUK ESTERASE Negative (NEGATIVE); URINE NITRITE - DIPSTICK Negative (Negative); URINE PH 6.5 (4.5-8.0); URINE PROTEIN - DIPSTICK 100 mg/dL (NEG-TRACE); URINE UROBILINOGEN - DIPSTICK 0.2 E.U./dL (0.2)
[2023-05-13 22:25] LABS: URINE COLOR Yellow; URINE RBC 0-2 RBC/hpf (0-5); URINE SQUAMOUS EPITHELIAL CELL FEW EPI/hpf (0-FEW); URINE WBC 0-2 WBC/hpf (0-5)
[2023-05-14] VITALS (57 sets, daily range): BP systolic 102–182; BP diastolic 44–101
[2023-05-14 06:36] LABS: HEMATOCRIT 37.4 % (37.0-47.0); HEMOGLOBIN 12.3 g/dl (12.0-16.0); MEAN CELL VOLUME 92.3 fL CALC (80.0-100.0); MEAN CORPUSCULAR HGB 30.4 pG CALC (26.0-32.0); MEAN CORPUSCULAR HGB CONC 32.9 g/dL CAL (32.0-36.0); RED BLOOD COUNT 4.05 mill/uL (4.20-5.60); RED CELL DISTRI WIDTH 12.7 % (11.5-15.5)
[2023-05-14 07:07] LABS: BILIRUBIN, TOTAL 0.6 mg/dL (0.02-1.3); CREATININE 1.1 mg/dL (0.5-1.0); POTASSIUM 4.8 mmol/l (3.5-5.1)
[2023-05-14 07:19] LABS: ALBUMIN 3.2 g/dL (3.2-5.0); TOTAL PROTEIN 6.6 g/dL (6.3-8.2)
[2023-05-14] MEDS ORDERED: TORADOL PO (14:08)
== END 2023-05-14 15:20 | disposition home or self-care (01) ==
LOC: ED 18:06 → ED-I 20:19 → ED 20:32 → ICU 20:33
PROVIDERS: Family Medicine; ADMIT Student in an Organized Health Care Education/Training Program; ATTEND Student in an Organized Health Care Education/Training Program
DX: E11.649 Type 2 diabetes mellitus with hypoglycemia without coma (principal); U07.1 COVID-19; R07.89 Other chest pain; I10 Essential (primary) hypertension; E66.9 Obesity, unspecified; Z79.4 Long term (current) use of insulin

== ENCOUNTER 2023-10-15 17:09 | Emergency (ER) | payer MEDICARE, MEDICAID ==
[~2023-10-15] VITALS: Ht 149.9 cm; Wt 64.0 kg
[2023-10-15 17:32] VITALS: BP 196/85
[2023-10-15] MEDS ORDERED: ONDANSETRON HCl 4 MG/2 ML SDV IV ONE (17:45)
[2023-10-15] MEDS ORDERED: DIATRIZOATE MEGLUMINE & SODIUM 30 ML/BTL BTL PO ONE (17:45)
[2023-10-15] MEDS ORDERED: SODIUM CHLORIDE 0.9% 1,000 ML IV ONE (17:50)
[2023-10-15] MEDS ORDERED: MORPHINE SULFATE 4 MG/ML VIAL IV ONE (17:50)
[2023-10-15 18:52] VITALS: BP 183/157
[2023-10-15 19:02] VITALS: BP 222/157
[2023-10-15 19:37] LABS: BASO% 0.3 % (0-3); EOS% 1.9 % (0-8); HEMATOCRIT 39.7 % (37.0-47.0); HEMOGLOBIN 13.1 g/dl (12.0-16.0); IMMATURE GRANULOCYTES 0.2 % (0.0-5.0); LYMPH% 21.5 % (15-41); MEAN CELL VOLUME 91.9 fL CALC (80.0-100.0); MEAN CORPUSCULAR HGB 30.3 pG CALC (26.0-32.0); NEUT# 7.56 thou/uL (2.00-7.15); NEUT% 66.1 % (42-76); RED BLOOD COUNT 4.32 mill/uL (4.20-5.60); RED CELL DISTRI WIDTH 12.3 % (11.5-15.5)
[2023-10-15 20:01] LABS: ALBUMIN 3.7 g/dL (3.2-5.0); ALKALINE PHOSPHATASE 166 u/l (38-126); ANION GAP 13 (6-22 (CALC)); BILIRUBIN, TOTAL 0.4 mg/dL (0.02-1.3); BUN 17 mg/dL (8-23); BUN/CREATININE RATIO 16 (12-20 (CALC)); CARBON DIOXIDE 26 mmol/l (22-30); CHLORIDE 99 mmol/l (95-108); GFR FOR AFR.AMER. > 60 ML/MIN (>=60 (CALC)); GFR OTHER RACES 54 ML/MIN (>=60 (CALC)); LIPASE 50 u/l (23-300); POTASSIUM 4.7 mmol/l (3.5-5.1); SGOT/AST 31 u/l (9-36); SODIUM 134 mmol/l (137-146); TOTAL PROTEIN 6.9 g/dL (6.3-8.2)
[2023-10-15 20:08] VITALS: BP 115/80
[2023-10-15 20:30] VITALS: BP 142/68
[2023-10-15 21:22] VITALS: BP 142/68
== END 2023-10-15 21:46 | disposition home or self-care (01) ==
LOC: ED 17:09
PROVIDERS: Family Medicine
DX: K83.8 Other specified diseases of biliary tract (principal); I10 Essential (primary) hypertension; E86.0 Dehydration; E11.9 Type 2 diabetes mellitus without complications; E66.9 Obesity, unspecified; Z85.43 Personal history of malignant neoplasm of ovary; Z79.4 Long term (current) use of insulin